=== PATIENT | female | born 1970 | race Caucasian/White ===

== ENCOUNTER 2021-09-28 12:19 | Inpatient (IN) | payer MEDICAID, SELFPAY ==
[2021-09-28 12:34] VITALS: BP 159/101; PULSE 73; RESP 18; TEMP 37.1; O2SAT 98; BMI 23.6
[2021-09-28 12:41] VITALS: BP 159/101; PULSE 73; RESP 18; TEMP 37.1; O2SAT 98
--- NOTE | 2021-09-28 12:41 | ED_ITS ---
HPI - General Adult General: Chief complaint: Psychiatric Symptoms Stated complaint: MHE/SI Time Seen by Provider: 09/28/21 12:34 History of Present Illness: HPI narrative: HPI: [50]yo patient w/ hx of schizoaffective disorder not on medicine presenting with worsening psychosis, inability to take care of self, and passive wish. Patient tells me she is hearing voices and not able to take care of self. On arrival, the patient is AAOx3 and cooperative with my evaluation. No focal complaints of chest pain, shortness of breath, palpitations, N/V, focal GI/ complaints. []Currently denies SI/HI. No complaints of hallucinations. Onset: chronic Duration: ongoing Location: home Severity: severe Review of Systems Narrative: Constitutional: No fever, no chills. HEENT: No vision changes CV: No chest pain, no palpitations PULM: No productive cough, no dyspnea. GI: No abdominal pain, no N/V/D. : No dysuria MSKEL: No muscle pain SKIN: No new rashes, no lesions. NEURO: No headache, no focal weakness. HEME: No visible bruises PSYCH: Normal mood +hallucinations, +depression Physical Exam Narrative: EXAM NARRATIVE: Head: Atraumatic Eyes: PERRL, conjunctiva without injection, eyes tracking ENT: Mucous membrane moist NECK: Supple without lymphadenopathy LUNGS: LCTAB CV: RRR ABDOMEN: Soft, nontender EXTREMITY: Normal ROM SKIN: No rash or erythema NEURO: Awake and alert. No focal weakness PSYCH: Cooperative mood and affect, +occasionally agitated Course Vital Signs: Vital signs: Vital Signs Temperature 98.7 F 09/28/21 12:41 Pulse Rate 73 09/28/21 12:41 Respiratory Rate 18 09/28/21 12:41 Blood Pressure 159/101 09/28/21 12:41 Pulse Oximetry 98 09/28/21 12:41 MDM - General Adult MDM Narrative: Medical decision making narrative: [50]yo patient w/ hx of s chizoaffective disorder presenting for depression and psychosis. HDS, exam within normal limit Thoughts are linear and organized, and the patient has no AH/VH, or HI. Clinically the patient displays no overt toxidrome; they are well appearing, with low suspicion for toxic ingestion given history and exam. Symptoms unlikely 2/2 anemia, hypothyroidism, infection, or ICH. Workup: CBC, CMP, Lipase, salicylate/tylenol, UDS Lab findings: wnl [1:30pm] On reassessment, labs and workup wnl. Patient is hemodynamically stable with no acute medical complaints. Case discussed with psychiatric provider Dr. Rothman at [facility] [place] psych inpatient with recommendation for admission. Was found to have a tylenol level 5.1. This was discussed with patient who tells me she has had 2 doses NyQuil earlier today. Patient denies any acute Tylenol overdose. We will evaluate for 4-hour Tylenol level. Case was discussed with patient's psychiatric provider Dr. Rothman who agrees with following the lab. Disposition: Psych Lab Data: Labs: Lab Results 09/28/21 09/28/21 09/28/21 12:53 13:34 13:34 WBC 7.9 10^3/uL 10^3/ uL (4.0-10.0) RBC 4.65 10^6/uL 10^6 /uL (4.1-5.3) Hgb 12.7 g/dL g/dL (11.5-15.3) Hct 39.7 % % (37.0-47.0) MCV 85.4 fl fl (81-99) MCH 27.3 pg L pg (28.0-34.0) MCHC 32.0 g/dL g/dL (30.0-36.0) RDW 17.9 % H % (12.1-15.1) Plt Count 290 10^3/cmm 10^3 /cmm (130-400) MPV 10.5 fL H fL (7.4-10.4) Neut % (Auto) 62.8 % % Lymph % (Auto) 26.5 % % [place] % (Auto) 7.5 % % Eos % (Auto) 2.0 % % Baso % (Auto) 0.9 % % Neut # (Auto) 4.97 10^3/uL 10^3 /uL (1.8-7.7) Lymph # (Auto) 2.1 10^3/uL 10^3/ uL (0.8-4.8) [place] # (Auto) 0.6 10^3/uL 10^3/ uL (0.2-0.9) Eos # (Auto) 0.2 10^3/uL 10^3/ uL (0.0-0.8) Baso # (Auto) 0.1 10^3/uL 10^3/ uL (0.0-0.1) Nucleated RBC % (a uto) 0 % % Nucleated RBCs # 0.0 /100WBC /100W BC Sodium 136 mmol/L mmol/L (136-145) Potassium 3.9 mmol/L mmol/L (3.5-5.1) Chloride 100 mmol/L mmol/L (98-107) Carbon Dioxide 22 mmol/L mmol/L (22-29) Anion Gap 17.9 (5-19) BUN 11 mg/dL mg/dL (6-20) Creatinine 0.7 mg/dL mg/dL (0.5-0.9) GFR Calculation 88.2 mL/min L mL/ min (90-130) Glucose 113 mg/dL mg/dL (65-115) Calculated Osmolal ity 282 mOsm/kg L mOs m/kg (285-295) Calcium 8.4 mg/dL L mg/dL (8.5-10.5) Salicylates < 0.3 mg/dL L mg/ dL (3-10) Urine Opiates Scre en Positive ng/mL H ng/mL (Negative) Acetaminophen 5.2 ug/mL L ug/mL (10-30) Ur Barbiturates Sc reen Negative ng/mL ng /mL (Negative) Ur Phencyclidine S crn Negative ng/mL ng /mL (Negative) Ur Amphetamines Sc reen Negative ng/mL ng /mL (Negative) U Benzodiazepines Scrn Negative ng/mL ng /mL (Negative) Urine Cocaine Scre en Positive ng/mL H ng/mL (Negative) U Marijuana (THC) Screen Positive ng/mL H ng/mL (Negative) Discharge Plan Discharge Patient Disposition: Admitted As Inpatient Admit Provider: Babak Rothman Clinical Impression: Psychosis, Depression Condition: Stable Coding Level of Care Code ED Pet Care Assistant for Loulou Hoff
--- NOTE | 2021-09-28 13:04 | PC.NURSE ---
Patient is a very pleasant 50 year old female that well groomed and well kept, the presents to the ER for thoughts of harming herself, auditory hallucinations, racing thoughts. She explained that she started having mental health concerns about 3 years ago, that started out of the blue. She explains that she has been placed on cymbalta, risperidone, ativan and voiced that the medications seem to work when she takes then believe she is better and then stops the medication. Once she stops the medication she begins having these symptoms and she knows that one of these times she is going to actively harm herself. Patient has been changed out of her clothing, placed in paper scrubs and is currently eating some food. No concerns noted at this time. Patient has one sweater, a colorful scarf, one cream colored coat, pair of blue jeans with money in the back pocket. Patient has a brown colored wallet, multiple rings, one necklace and a pair of earrings. She has one pair of pink tennis shoes that she is wearing the laces have been removed and placed into her bag.
[2021-09-28 13:36] LABS: Amphetamines Screen Urine Negative (Negative); Barbiturates Screen Urine Negative (Negative); Benzodiazepines Screen Urine Negative (Negative); Cocaine Screen Urine Positive (Negative); Opiate Screen Urine Positive (Negative); PCP Screen Urine Negative (Negative); THC Screen Urine Positive (Negative)
[2021-09-28 13:40] LABS: Basophils # 0.1 10^3/uL (0.0-0.1); Basophils % 0.9 %; Eosinophils # 0.2 10^3/uL (0.0-0.8); Hematocrit 39.7 % (37.0-47.0); Hemoglobin 12.7 g/dL (11.5-15.3); Lymphocytes # 2.1 10^3/uL (0.8-4.8); Lymphocytes % 26.5 %; Mean Corpuscular Hemoglobin 27.3 pg (28.0-34.0); Mean Corpuscular Volume 85.4 fl (81-99); Mean Platelet Volume 10.5 fL (7.4-10.4); Monocytes # 0.6 10^3/uL (0.2-0.9); Monocytes % 7.5 %; Neutrophils # 4.97 10^3/uL (1.8-7.7); Neutrophils % 62.8 %; Nucleated Red Blood Cells % 0 %; Platelet Count 290 10^3/cmm (130-400); Red Blood Count 4.65 10^6/uL (4.1-5.3); Red Cell Distribution Width 17.9 % (12.1-15.1); White Blood Count 7.9 10^3/uL (4.0-10.0)
[2021-09-28 13:58] LABS: Acetaminophen 5.2 ug/mL (10-30); Anion Gap 17.9 (5-19); Blood Urea Nitrogen 11 mg/dL (6-20); Calcium 8.4 mg/dL (8.5-10.5); Carbon Dioxide 22 mmol/L (22-29); Chloride 100 mmol/L (98-107); Glomerular Filtration Rate 88.2 mL/min (90-130); Glucose 113 mg/dL (65-115); Osmolality Calculated 282 mOsm/kg (285-295); Potassium 3.9 mmol/L (3.5-5.1); Salicylate < 0.3 mg/dL (3-10); Sodium 136 mmol/L (136-145)
[2021-09-28 14:07] VITALS: BP 159/101; PULSE 73; RESP 18; TEMP 37.1; O2SAT 98
[2021-09-28 14:19] VITALS: BP 151/95; PULSE 73; RESP 18; TEMP 37.1; O2SAT 97
[2021-09-28] MEDS: OLANZapine 5 mg ODT PO ×2 (15:07→22:26)
[2021-09-28] MEDS: nicotine 21 mg Patch 1 PATCH TRANSDERMA (17:05)
[2021-09-28] MEDS: hyDROXYzine 25 mg Capsule 50 MG PO (17:07)
--- NOTE | 2021-09-28 19:02 | PC.NURSE ---
PRN C/o AH. Took PRN Zydis. Reports it was only partially helpful. Did not eliminate AH fully. Took PRN Vistaril for c/o anxiety. Appears to have been effective as patient went to bed and has been resting with eyes closed. Received Nicotine Patch. No further c/o this evening.
[2021-09-28 19:07] LABS: Acetaminophen < 5.0 ug/mL (10-30)
[2021-09-28 21:19] VITALS: BP 131/79; PULSE 85; RESP 18; O2SAT 98
[2021-09-28] MEDS: trazodone 50 mg Tablet PO (22:27)
--- NOTE | 2021-09-28 22:35 | PC.NURSE ---
Patient presented to desk, restless, anxious, and requesting trazodone and Haldol. Reviewed MAR with patient, advised patient she could have the Trazodone and Zydis and not Haldol until one hour after Zydis. When giving Zydis to patient pill crumbled, and she said what kind of meds are you trying to give in this place. Obtained a different pill for Ms. Pond. She wanted to know when she could have her home medications, asked if she could confirm her current pharmacy or bottles. Initially stated she used [facility] in [place], unable to find on search in system to place request, then she said to try [facility], request submitted. She then began naming meds she was on daily, Ativan, Trazodone, Seroquel. THen was asking at what time could she get her next dose of medication after her Zydis. Reporting increased auditory hallucinations at this time.
[2021-09-29 06:00] VITALS: RESP 15
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
[2021-09-29] MEDS: hyDROXYzine 25 mg Capsule 50 MG PO ×3 (07:54→16:55)
[2021-09-29] MEDS: OLANZapine 5 mg ODT PO ×2 (07:54→13:57)
[2021-09-29 14:00] VITALS: RESP 16
[2021-09-29] MEDS: propranolol 20 mg Tablet PO (15:21)
[2021-09-29] MEDS: haloperidol 5 mg Tablet PO (15:21)
[2021-09-29] MEDS: paliperidone ER 6 mg Tablet PO ×2 (15:45→15:46)
[2021-09-29] MEDS: duloxetine 20 mg Capsule PO ×2 (15:46→17:15)
[2021-09-29 22:00] VITALS: BP 118/80; PULSE 90; RESP 16; TEMP 36.8; O2SAT 98
[2021-09-30 06:00] VITALS: BP 138/84; PULSE 53; RESP 16; TEMP 36.9; O2SAT 100
[2021-09-30] MEDS: paliperidone ER 6 mg Tablet PO (08:36)
[2021-09-30] MEDS: duloxetine 20 mg Capsule PO ×2 (08:36→17:46)
[2021-09-30] MEDS: OLANZapine 5 mg ODT PO ×2 (08:36→15:26)
[2021-09-30] MEDS: hyDROXYzine 25 mg Capsule 50 MG PO ×2 (08:36→15:26)
[2021-09-30] MEDS: haloperidol 5 mg Tablet PO ×2 (09:47→16:27)
--- NOTE | 2021-09-30 09:50 | W.PM.NPUPNS ---
Subjective NPU Subjective: Interval history: Patient presents today reporting she is tolerating her medication without issue. She reports that she is a little tired on the medication but some of the isolation in her room is related to the acuity on the unit. She reports that she is starting to feel a little better denies any new or pressing issues. Mental Status Exam MSE Comments: This is a well-nourished, well-developed, white female, with adequate dress, grooming, and eye contact, in hospital scrubs. No abnormal movements except for mild psychomotor retardation. Cooperative with exam in no acute distress. Speech was normal rate and volume. Mood described as anxious, but improving; affect congruent. Thought process, organized. Thought content: patient denied any suicidal or homicidal ideation. She endorses paranoia but no delusions are noted, and she endorses auditory and visual hallucinations. Attention, concentration, and memory appear intact but were not formally tested. He is alert and oriented times three. Insight and judgment are limited, impulse control is limited to impaired. Vitals/I&O/Wt Last Vital Signs Temp 97.8 F 09/30/21 06:00 Pulse 53 L 09/30/21 06:00 Resp 16 09/30/21 06:00 BP 138/84 09/30/21 06:00 Pulse Ox 100 09/30/21 06:00 Data NPU : 09/28/21 13:34 09/28/21 13:34 A&P Additional A&P Information (1) Psychosis: (2) Depression: Additional A&P Information This is a 50-year-old, white female, with psychosis, unspecified, rule out schizophrenia, rule out schizoaffective disorder, anxiety disorder, unspecified, who presents denying active addiction with a history of addiction and a positive UDS, who presents reporting she wants to get restarted on her medication. RECOMMENDATION AND PLAN: 1. Continue current medications. 2. Encourage individual, group, and milieu therapy. 3. Continue q-15 minute checks for safety. 4. Encourage sober living treatment after discharge, at the highest level of care, to which she is willing to commit. Involuntary Hold Information 96 Hour Hold: 96 Hour Involuntary Admission: No Attestations NPU Medical Necessity Statement*: Inpatient hospitalization is medically necessary and the clinically appropriate intervention, at this time. We will monitor medications and make changes as indicated. Likely length of stay is 2-4 days. Coding Level of Care Code Acute Clothespin Drier Operator for Loulou Hoff
[2021-09-30] MEDS: nicotine 21 mg Patch 1 PATCH TRANSDERMA (09:57)
[2021-09-30 14:00] VITALS: BP 120/72; PULSE 58; RESP 16; TEMP 36.7; O2SAT 97
[2021-09-30 22:00] VITALS: BP 113/67; PULSE 54; RESP 16; TEMP 37; O2SAT 96
[2021-10-01 06:00] VITALS: BP 150/93; PULSE 56; RESP 17; TEMP 37; O2SAT 97
[2021-10-01] MEDS: propranolol 20 mg Tablet PO (08:05)
[2021-10-01] MEDS: OLANZapine 5 mg ODT PO ×2 (08:06→13:18)
[2021-10-01] MEDS: nicotine 21 mg Patch 1 PATCH TRANSDERMA (08:06)
[2021-10-01] MEDS: duloxetine 20 mg Capsule PO (08:06)
[2021-10-01] MEDS: paliperidone ER 6 mg Tablet PO (08:06)
[2021-10-01] MEDS: hyDROXYzine 25 mg Capsule 50 MG PO ×2 (08:06→13:47)
[2021-10-01] MEDS: haloperidol 5 mg Tablet PO (10:20)
[2021-10-01] MEDS: benztropine 1 mg Tablet PO (10:20)
--- NOTE | 2021-10-01 10:22 | PC.NURSE ---
prn Administered cogentin 1mg for muscle stiffness, administered 5mg Haldol for severe anxiety. Will continue to monitor
[2021-10-01 13:59] VITALS: BP 108/69; PULSE 59; RESP 18; TEMP 36.5; O2SAT 96
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
[2021-10-01 14:36] VITALS: BP 108/69; PULSE 59; RESP 18; TEMP 36.5; O2SAT 96
== END 2021-10-01 15:30 | disposition home or self-care (01) | DRG 885 ==
LOC: ER 13:35 → NP 16:40
PROVIDERS: Admitting Provider Psychiatry & Neurology Psychiatry; Emergency Provider Emergency Medicine; Visit Provider Psychiatry & Neurology Psychiatry
DX: F29 Unspecified psychosis not due to a substance or known physiological condition (principal); F32.A Depression, unspecified; F25.9 Schizoaffective disorder, unspecified; F41.9 Anxiety disorder, unspecified; F17.210 Nicotine dependence, cigarettes, uncomplicated; F12.90 Cannabis use, unspecified, uncomplicated; F14.90 Cocaine use, unspecified, uncomplicated; F11.90 Opioid use, unspecified, uncomplicated; Z62.819 Personal history of unspecified abuse in childhood; Z72.89 Other problems related to lifestyle; Z81.8 Family history of other mental and behavioral disorders; Z81.4 Family history of other substance abuse and dependence; Z91.51 Personal history of suicidal behavior
CPT/HCPCS: 36415; 80048; 80306; 80307; 85025; 97150; 97165; 99285

== ENCOUNTER 2021-10-14 17:10 | Emergency (ER) | payer MEDICAID, SELFPAY ==
[2021-10-14 17:17] VITALS: BP 123/76; PULSE 80; RESP 16; TEMP 36.7; O2SAT 98
--- NOTE | 2021-10-14 17:31 | W.ED.PSYCHS ---
Documented by User: Mason Renee DO 10/21/21 14:16 HPI - Psych General: Chief Complaint: Psychiatric Symptoms Stated Complaint: SI Time Seen by Provider: 10/14/21 17:22 History of Present Illness: HPI Narrative: 51-year-old female presents emergency room complaining of several things. First she has back pain she refers to the flank at the level of the kidneys bilaterally says been going on for while she is extremely uncomfortable moving around grasping at her flank. She denies any hematuria no history of renal stones in the past per secondarily she has been drinking heavily and is acutely intoxicated. Finally she states that she is suicidal. She states she has been suicidal since last time she was here which incidentally was also for being suicidal. At that time she was discharged home medication she has been taking them regularly. MD complaint: suicidal ideation Onset (ago): hour(s) Duration: constant History of same: No Relieving factors: none Exacerbating factors: none Context: recent alcohol abuse Associated psychiatric symptoms: none Associated symptoms: Reports suicidal ideation Treatments prior to arrival: none If self harm: admits thoughts of self harm Review of Systems Const: Denies: fever(s), chills, body aches, change in appetite, fatigue or malaise ENMT: Denies: throat pain, ear or mastoid pain, nasal discharge or nasal congestion Card: Denies: chest pain, edema, dyspnea on exertion or orthopnea Resp: Denies: dyspnea, productive cough or non-productive cough GI: Denies: abdominal pain, nausea, vomiting, hematemesis, coffee ground emesis, diarrhea, constipation, bloating, hematochezia or melena : Denies: flank pain, difficulty voiding, dysuria, urinary frequency or urinary urgency Skin/Breast: Denies: rash or pruritus Psych: Reports: suicidal ideation PFSH ED PFSH: Medical History (Updated 10/19/21 @ 10:11 by Stacy Rosales) Alcohol dependence, uncomplicated Cannabis dependence, uncomplicated Cocaine abuse Depression Generalized anxiety disorder Post-traumatic stress disorder, chronic Psychiatric care Schizoaffective disorder, bipolar type Social History (Updated 10/14/21 @ 17:35 by Mason Renee DO) Smoking and tobacco status: current some day smoker Alcohol intake: current Last alcohol use date: 10/14/21 Other details last alcohol use: Drank a pint of hard liquor today. Physical Exam Const: COMMON NORMALS: no acute distress GENERAL APPEARANCE: cooperative and comfortable ORIENTATION/CONSCIOUSNESS: Yes awake, Yes oriented to person, Yes oriented to place and Yes oriented to time HENMT: COMMON NORMALS: normocephalic, atraumatic and hearing grossly normal bilaterally HEAD & SCALP: normocephalic and atraumatic Neck/C-Spine: COMMON NORMALS: no JVD Resp: COMMON NORMALS: normal respiratory effort, No retractions, No use of accessory muscles and clear to auscultation bilaterally AUSCULTATION: clear to auscultation bilaterally Cardio: COMMON NORMALS: no JVD, regular rate, regular rhythm and No murmurs present (Cardio) RATE: regular rate RHYTHM: regular rhythm GI: COMMON NORMALS: Soft to palpation and No hepatosplenomegaly present AUSCULTATION: Yes normoactive bowel sounds PALPATION: Yes Soft to palpation, No Tenderness to palpation present (GI), No Guarding due to palpation present (GI) and Yes No hepatosplenomegaly present Extremity: COMMON NORMALS: normal to inspection, capillary refill normal, no clubbing, cyanosis or edema, no calf tenderness and no pedal edema Neuro: SENSORIUM/ORIENTATION: Yes oriented to person, Yes oriented to place and Yes oriented to time Skin: COMMON NORMALS: no rashes or lesions noted GENERAL SKIN EXAM: no rashes or lesions noted Course Vital Signs: Vital signs: Vital Signs Temperature 98.1 F 10/14/21 17:17 Pulse Rate 84 10/14/21 19:47 Respiratory Rate 16 10/14/21 19:47 Blood Pressure 123/76 10/14/21 17:17 Pulse Oximetry 97 10/14/21 19:47 MDM - Psych MDM Narrative: Medical decision making narrative: Care turned over Dr. durham for seasonal final diagnosis disposition Lab Data: Labs: Lab Results 10/14/21 10/14/21 10/14/21 17:45 17:45 17:45 WBC 8.2 10^3/uL 10^3/ uL (4.0-10.0) RBC 4.86 10^6/uL 10^6 /uL (4.1-5.3) Hgb 13.7 g/dL g/dL (11.5-15.3) Hct 39.6 % % (37.0-47.0) MCV 81.5 fl fl (81-99) MCH 28.2 pg pg (28.0-34.0) MCHC 34.6 g/dL g/dL (30.0-36.0) RDW 16.8 % H % (12.1-15.1) Plt Count 291 10^3/cmm 10^3 /cmm (130-400) MPV 9.9 fL fL (7.4-10.4) Neut % (Auto) 44.4 % % Lymph % (Auto) 44.9 % % [place] % (Auto) 6.1 % % Eos % (Auto) 3.3 % % Baso % (Auto) 1.1 % % Neut # (Auto) 3.64 10^3/uL 10^3 /uL (1.8-7.7) Lymph # (Auto) 3.7 10^3/uL 10^3/ uL (0.8-4.8) [place] # (Auto) 0.5 10^3/uL 10^3/ uL (0.2-0.9) Eos # (Auto) 0.3 10^3/uL 10^3/ uL (0.0-0.8) Baso # (Auto) 0.1 10^3/uL 10^3/ uL (0.0-0.1) Nucleated RBC % (a uto) 0 % % Nucleated RBCs # 0.0 /100WBC /100W BC Sodium 140 mmol/L mmol/L (136-145) Potassium 3.9 mmol/L mmol/L (3.5-5.1) Chloride 105 mmol/L mmol/L (98-107) Carbon Dioxide 20 mmol/L L mmol/ L (22-29) Anion Gap 18.9 (5-19) BUN 12 mg/dL mg/dL (6-20) Creatinine 0.7 mg/dL mg/dL (0.5-0.9) GFR Calculation 87.9 mL/min L mL/ min (90-130) Glucose 87 mg/dL mg/dL (65-115) Calculated Osmolal ity 289 mOsm/kg mOsm/ kg (285-295) Calcium 8.3 mg/dL L mg/dL (8.5-10.5) Total Bilirubin 0.2 mg/dL mg/dL (0.15-1.2) AST 16 U/L U/L (0-32) ALT 14 U/L U/L (0-33) Alkaline Phosphata se 57 IU/L IU/L (35-105) Total Protein 6.7 g/dL g/dL (6.6-8.7) Albumin 4.3 g/dL g/dL (3.5-5.2) Globulin 2.4 g/dL g/dL (1.3-4.6) HCG, Qual Negative (Negative) Urine Color Urine Appearance Urine pH Ur Specific Gravit y Urine Protein Urine Glucose (UA) Urine Ketones Urine Blood Urine Nitrate Urine Bilirubin Urine Urobilinogen Ur Leukocyte Melany ase Urine RBC Urine WBC Ur Squamous Epith Cells Amorphous Sediment Urine Bacteria Salicylates < 0.3 mg/dL L mg/ dL (3-10) Acetaminophen < 5.0 ug/mL L ug/ mL (10-30) Ethyl Alcohol 10/14/21 10/14/21 17:45 17:45 WBC RBC Hgb Hct MCV MCH MCHC RDW Plt Count MPV Neut % (Auto) Lymph % (Auto) [place] % (Auto) Eos % (Auto) Baso % (Auto) Neut # (Auto) Lymph # (Auto) [place] # (Auto) Eos # (Auto) Baso # (Auto) Nucleated RBC % (a uto) Nucleated RBCs # Sodium Potassium Chloride Carbon Dioxide Anion Gap BUN Creatinine GFR Calculation Glucose Calculated Osmolal ity Calcium Total Bilirubin AST ALT Alkaline Phosphata se Total Protein Albumin Globulin HCG, Qual Urine Color Yellow (Yellow) Urine Appearance Clear (CLEAR) Urine pH 6.5 (5-7) Ur Specific Gravit y 1.020 (1.005-1.030) Urine Protein Neg (Negative) Urine Glucose (UA) Norm (Normal) Urine Ketones Negative (Negative) Urine Blood 2+ H (Negative) Urine Nitrate Negative (Negative) Urine Bilirubin Neg (Negative) Urine Urobilinogen Norm mg/dL mg/dL (Negative) Ur Leukocyte Melany ase Trace H (Negative) Urine RBC None /hpf /hpf (0-2) Urine WBC Rare /hpf /hpf (0-5) Ur Squamous Epith Cells 0-4 /hpf H /hpf (0-5) Amorphous Sediment Not Reportable Urine Bacteria Trace /hpf /hpf (NONE) Salicylates Acetaminophen Ethyl Alcohol 227 mg/dL H mg/dL (0-10) Discharge Plan Discharge Patient Disposition: Home Clinical Impression: Alcohol intoxication, Back pain Depression Qualifiers: Depression Type: unspecified Qualified Code(s): F32.A - Depression, unspecified Condition: Stable Prescriptions: No Action duloxetine [Cymbalta] 60 mg capsule,delayed release(DR/EC) 60 mg PO DAILY Qty: 30 RF: 1 buspirone 15 mg tablet 15 mg PO BID Qty: 60 RF: 0 mirtazapine [Remeron] 15 mg tablet 15 mg PO .HS PRN (Reason: sleep) Qty: 30 RF: 1 paliperidone [Invega] 3 mg tablet extended release 24hr 3 mg PO QAM Qty: 30 RF: 1 propranolol 20 mg Tablet 20 mg PO TID PRN (Reason: Anxiety) 30 Days Qty: 90 RF: 1 hydroxyzine pamoate 25 mg Capsule 50 mg PO Q6H PRN (Reason: Anxiety) 30 Days Qty: 120 RF: 1 paliperidone 6 mg Tablet Extended Release 24hr 6 mg PO DAILY 30 Days Qty: 30 RF: 1 Discharge Orders: Discharge ED (Routine); Ordered 10/14/21 Ordered By: Chace Chong Discharge Diet: Advance as tolerated Discharge Activity: Resume usual activity Patient Instructions: Abuse of Alcohol (ED) Coding Level of Care Code ED Telecommunication Lines Repairer for Chg Fwd Exam Comprehensive Documented by User: Chace Chong MD 10/14/21 20:10 HPI - Psych General: Chief Complaint: Psychiatric Symptoms Stated Complaint: SI Time Seen by Provider: 10/14/21 17:22 PFSH ED PFSH: Medical History (Updated 10/19/21 @ 10:11 by Stacy Rosales) Alcohol dependence, uncomplicated Cannabis dependence, uncomplicated Cocaine abuse Depression Generalized anxiety disorder Post-traumatic stress disorder, chronic Psychiatric care Schizoaffective disorder, bipolar type Social History (Updated 10/14/21 @ 17:35 by Mason Renee DO) Smoking and tobacco status: current some day smoker Alcohol intake: current Last alcohol use date: 10/14/21 Other details last alcohol use: Drank a pint of hard liquor today. Course Vital Signs: Vital signs: Vital Signs Temperature 98.1 F 10/14/21 17:17 Pulse Rate 84 10/14/21 19:47 Respiratory Rate 16 10/14/21 19:47 Blood Pressure 123/76 10/14/21 17:17 Pulse Oximetry 97 10/14/21 19:47 MDM - Psych MDM Narrative: Medical decision making narrative: Patient presents here with alcohol intoxication along with back pain patient's urinalysis here is negative blood work is normal as well back pain is likely muscular she is point tender over paraspinal tenderness no actual flank tenderness no abdominal tenderness patient is intoxicated but is now awake alert able ambulate make her own decisions she states she is not suicidal so I had her evaluated by Dr. Rothman who felt she is stable for discharge and does not feel she is a threat to herself or others he did recommend starting her on BuSpar 15 mg twice daily which I will. She is return if worsening and follow-up with behavioral health she understands agrees to plan. Lab Data: Labs: Lab Results 10/14/21 10/14/21 10/14/21 17:45 17:45 17:45 WBC 8.2 10^3/uL 10^3/ uL (4.0-10.0) RBC 4.86 10^6/uL 10^6 /uL (4.1-5.3) Hgb 13.7 g/dL g/dL (11.5-15.3) Hct 39.6 % % (37.0-47.0) MCV 81.5 fl fl (81-99) MCH 28.2 pg pg (28.0-34.0) MCHC 34.6 g/dL g/dL (30.0-36.0) RDW 16.8 % H % (12.1-15.1) Plt Count 291 10^3/cmm 10^3 /cmm (130-400) MPV 9.9 fL fL (7.4-10.4) Neut % (Auto) 44.4 % % Lymph % (Auto) 44.9 % % [place] % (Auto) 6.1 % % Eos % (Auto) 3.3 % % Baso % (Auto) 1.1 % % Neut # (Auto) 3.64 10^3/uL 10^3 /uL (1.8-7.7) Lymph # (Auto) 3.7 10^3/uL 10^3/ uL (0.8-4.8) [place] # (Auto) 0.5 10^3/uL 10^3/ uL (0.2-0.9) Eos # (Auto) 0.3 10^3/uL 10^3/ uL (0.0-0.8) Baso # (Auto) 0.1 10^3/uL 10^3/ uL (0.0-0.1) Nucleated RBC % (a uto) 0 % % Nucleated RBCs # 0.0 /100WBC /100W BC Sodium 140 mmol/L mmol/L (136-145) Potassium 3.9 mmol/L mmol/L (3.5-5.1) Chloride 105 mmol/L mmol/L (98-107) Carbon Dioxide 20 mmol/L L mmol/ L (22-29) Anion Gap 18.9 (5-19) BUN 12 mg/dL mg/dL (6-20) Creatinine 0.7 mg/dL mg/dL (0.5-0.9) GFR Calculation 87.9 mL/min L mL/ min (90-130) Glucose 87 mg/dL mg/dL (65-115) Calculated Osmolal ity 289 mOsm/kg mOsm/ kg (285-295) Calcium 8.3 mg/dL L mg/dL (8.5-10.5) Total Bilirubin 0.2 mg/dL mg/dL (0.15-1.2) AST 16 U/L U/L (0-32) ALT 14 U/L U/L (0-33) Alkaline Phosphata se 57 IU/L IU/L (35-105) Total Protein 6.7 g/dL g/dL (6.6-8.7) Albumin 4.3 g/dL g/dL (3.5-5.2) Globulin 2.4 g/dL g/dL (1.3-4.6) HCG, Qual Negative (Negative) Urine Color Urine Appearance Urine pH Ur Specific Gravit y Urine Protein Urine Glucose (UA) Urine Ketones Urine Blood Urine Nitrate Urine Bilirubin Urine Urobilinogen Ur Leukocyte Melany ase Urine RBC Urine WBC Ur Squamous Epith Cells Amorphous Sediment Urine Bacteria Salicylates < 0.3 mg/dL L mg/ dL (3-10) Acetaminophen < 5.0 ug/mL L ug/ mL (10-30) Ethyl Alcohol 10/14/21 10/14/21 17:45 17:45 WBC RBC Hgb Hct MCV MCH MCHC RDW Plt Count MPV Neut % (Auto) Lymph % (Auto) [place] % (Auto) Eos % (Auto) Baso % (Auto) Neut # (Auto) Lymph # (Auto) [place] # (Auto) Eos # (Auto) Baso # (Auto) Nucleated RBC % (a uto) Nucleated RBCs # Sodium Potassium Chloride Carbon Dioxide Anion Gap BUN Creatinine GFR Calculation Glucose Calculated Osmolal ity Calcium Total Bilirubin AST ALT Alkaline Phosphata se Total Protein Albumin Globulin HCG, Qual Urine Color Yellow (Yellow) Urine Appearance Clear (CLEAR) Urine pH 6.5 (5-7) Ur Specific Gravit y 1.020 (1.005-1.030) Urine Protein Neg (Negative) Urine Glucose (UA) Norm (Normal) Urine Ketones Negative (Negative) Urine Blood 2+ H (Negative) Urine Nitrate Negative (Negative) Urine Bilirubin Neg (Negative) Urine Urobilinogen Norm mg/dL mg/dL (Negative) Ur Leukocyte Melany ase Trace H (Negative) Urine RBC None /hpf /hpf (0-2) Urine WBC Rare /hpf /hpf (0-5) Ur Squamous Epith Cells 0-4 /hpf H /hpf (0-5) Amorphous Sediment Not Reportable Urine Bacteria Trace /hpf /hpf (NONE) Salicylates Acetaminophen Ethyl Alcohol 227 mg/dL H mg/dL (0-10) Discharge Plan Discharge Patient Disposition: Home Clinical Impression: Alcohol intoxication, Back pain Depression Qualifiers: Depression Type: unspecified Qualified Code(s): F32.A - Depression, unspecified Condition: Stable Prescriptions: No Action duloxetine [Cymbalta] 60 mg capsule,delayed release(DR/EC) 60 mg PO DAILY Qty: 30 RF: 1 buspirone 15 mg tablet 15 mg PO BID Qty: 60 RF: 0 mirtazapine [Remeron] 15 mg tablet 15 mg PO .HS PRN (Reason: sleep) Qty: 30 RF: 1 paliperidone [Invega] 3 mg tablet extended release 24hr 3 mg PO QAM Qty: 30 RF: 1 propranolol 20 mg Tablet 20 mg PO TID PRN (Reason: Anxiety) 30 Days Qty: 90 RF: 1 hydroxyzine pamoate 25 mg Capsule 50 mg PO Q6H PRN (Reason: Anxiety) 30 Days Qty: 120 RF: 1 paliperidone 6 mg Tablet Extended Release 24hr 6 mg PO DAILY 30 Days Qty: 30 RF: 1 Discharge Orders: Discharge ED (Routine); Ordered 10/14/21 Ordered By: Chace Chong Discharge Diet: Advance as tolerated Discharge Activity: Resume usual activity Patient Instructions: Abuse of Alcohol (ED) Coding Level of Care Code ED Telecommunication Lines Repairer for Jaming Fwd Exam Comprehensive
[2021-10-14 17:50] LABS: Basophils # 0.1 10^3/uL (0.0-0.1); Basophils % 1.1 %; Eosinophils # 0.3 10^3/uL (0.0-0.8); Eosinophils % 3.3 %; Hematocrit 39.6 % (37.0-47.0); Hemoglobin 13.7 g/dL (11.5-15.3); Lymphocytes # 3.7 10^3/uL (0.8-4.8); Lymphocytes % 44.9 %; Mean Corpuscular HGB Conc 34.6 g/dL (30.0-36.0); Mean Corpuscular Hemoglobin 28.2 pg (28.0-34.0); Mean Corpuscular Volume 81.5 fl (81-99); Mean Platelet Volume 9.9 fL (7.4-10.4); Monocytes # 0.5 10^3/uL (0.2-0.9); Monocytes % 6.1 %; Neutrophils # 3.64 10^3/uL (1.8-7.7); Neutrophils % 44.4 %; Nucleated Red Blood Cells % 0 %; Platelet Count 291 10^3/cmm (130-400); Red Blood Count 4.86 10^6/uL (4.1-5.3); Red Cell Distribution Width 16.8 % (12.1-15.1); White Blood Count 8.2 10^3/uL (4.0-10.0)
[2021-10-14 18:06] LABS: Alanine Aminotransferase 14 U/L (0-33); Albumin Level 4.3 g/dL (3.5-5.2); Alkaline Phosphatase 57 IU/L (35-105); Anion Gap 18.9 (5-19); Aspartate Amino Transferase 16 U/L (0-32); Blood Urea Nitrogen 12 mg/dL (6-20); Calcium 8.3 mg/dL (8.5-10.5); Carbon Dioxide 20 mmol/L (22-29); Chloride 105 mmol/L (98-107); Globulin 2.4 g/dL (1.3-4.6); Glomerular Filtration Rate 87.9 mL/min (90-130); Glucose 87 mg/dL (65-115); Osmolality Calculated 289 mOsm/kg (285-295); Potassium 3.9 mmol/L (3.5-5.1); Sodium 140 mmol/L (136-145); Total Bilirubin 0.2 mg/dL (0.15-1.2); Total Protein 6.7 g/dL (6.6-8.7)
[2021-10-14 18:10] LABS: Acetaminophen < 5.0 ug/mL (10-30); HCG, Serum Qual Negative (Negative); Salicylate < 0.3 mg/dL (3-10)
[2021-10-14 19:12] LABS: Bilirubin Urine Neg (Negative); Blood Urine 2+ (Negative); Glucose Urine UA Norm (Normal); Ketones Urine Negative (Negative); Nitrate Urine Negative (Negative); Protein Urine Neg (Negative); Urine Appearance Clear (CLEAR); Urine Color Yellow (Yellow); Urobilinogen Urine Norm (Negative); pH Urine 6.5 (5-7)
[2021-10-14 19:13] LABS: Add Urine Microscopic? YES; Alcohol Level 227 mg/dL (0-10); Bacteria Urine TRACE /hpf; Leukocyte Esterase Urine Trace (Negative); Squamous Epithelial Cell Urine 0-4 /hpf (0-5); WBC Urine RARE /hpf (0-5)
[2021-10-14 19:47] VITALS: PULSE 84; RESP 16; O2SAT 97
== END 2021-10-14 19:48 | disposition home or self-care (01) ==
PROVIDERS: Family Medicine; Emergency Provider Emergency Medicine
DX: F10.129 Alcohol abuse with intoxication, unspecified (principal); F32.A Depression, unspecified; M54.9 Dorsalgia, unspecified; F17.210 Nicotine dependence, cigarettes, uncomplicated
CPT/HCPCS: 80053; 80307; 81001; 84703; 85025; 99283

== ENCOUNTER → 2021-10-18 11:49 | Outpatient (BNVA) | payer OTHER, SELFPAY | PROVIDERS: Visit Provider Nurse Practitioner | DX: F14.10 Cocaine abuse, uncomplicated (principal) | CPT/HCPCS: 80307 ==